=== PATIENT | female | born 1970 | race African-American/Black ===

== ENCOUNTER 2016-12-19 10:31 | Emergency (ER) | payer SELFPAY ==
[~2016-12-19] VITALS: Ht 167.6 cm; Wt 87.0 kg
[~2016-12-19 10:31] MED LIST: METF500T4 PO
[2016-12-19] MEDS ORDERED: SODIUM CHLORIDE 0.9% 1,000 ML IV ONE (11:39)
[2016-12-19 12:23] LABS: EOSINOPHILS % 2.9 % (0.0-5.0); HEMATOCRIT. 42.6 % (36.0-48.0); HEMOGLOBIN. 13.9 g/dL (12.0-16.0); LYMPHOCYTES % 24.4 % (20.0-50.0); MEAN CORPUSCULAR HEMOGLOBIN 28.2 pg (28.0-32.0); MEAN CORPUSCULAR VOLUME 86.2 fL (81.0-99.0); MEAN PLATELET VOLUME 9.5 fl (7.4-10.4); MONOCYTES % 7.9 % (2.0-8.0); NEUTROPHILS % 63.8 % (40.0-76.0); PLATELET 292 x1000/uL (130-400); RED BLOOD CELL COUNT 4.94 mill/uL (4.2-5.4); RED CELL DISTRIBUTION WIDTH 13.9 % (11.6-14.6)
[2016-12-19 12:30] LABS: PROTHROMBIN TIME 10.1 sec
[2016-12-19 12:45] LABS: HCG SCREEN NEGATIVE
[2016-12-19 13:13] LABS: CARBON DIOXIDE 28 mEq/L (21-32); CHLORIDE 105 mEq/L (98-107); ETHANOL BLOOD < 10 mg/dL
[2016-12-19 13:17] LABS: TROPONIN I < 0.02 ng/mL (0.00-0.04)
[2016-12-19] MEDS ORDERED: INSULIN REGULAR (HUMULIN R) 300UNITS/3ML SUBCUT ONE (13:30)
[2016-12-19 13:48] LABS: *AMPHETAMINES SCREEN URINE NEGATIVE (NEGATIVE); *BARBITURATES SCREEN URINE NEGATIVE (NEGATIVE); *BENZODIAZEPINES SCREEN URINE NEGATIVE (NEGATIVE); CANNABINOID URINE SCREEN NEGATIVE (NEGATIVE); METHADONE URINE SCREEN NEGATIVE (NEGATIVE); OPIATES URINE SCREEN NEGATIVE (NEGATIVE); PHENCYCLIDINE URINE SCREEN NEGATIVE (NEGATIVE)
[2016-12-19 13:49] LABS: *COCAINE SCREEN URINE PRESUMTIVE POSITIVE (NEGATIVE)
[2016-12-19 14:39] VITALS: BP 123/68
== END 2016-12-19 14:50 | disposition home or self-care (01) ==
LOC: ER 12:08
DX: R07.9 Chest pain, unspecified (principal); F14.10 Cocaine abuse, uncomplicated; E11.65 Type 2 diabetes mellitus with hyperglycemia; I10 Essential (primary) hypertension; F17.200 Nicotine dependence, unspecified, uncomplicated; M79.602 Pain in left arm; M79.601 Pain in right arm
CPT/HCPCS: 36415; 71010; 80053; 80305; 82010; 82962; 83605; 83690; 84484; 84703; 85025; 85610; 93005; 96360; 96372; 99285; G0482; J1815; J7030; Z7610

== ENCOUNTER 2018-01-16 18:53 | Emergency (ER) | payer MEDICAID ==
[~2018-01-16] VITALS: Ht 170.2 cm; Wt 86.0 kg
[~2018-01-16 18:53] MED LIST changes: -METF500T4 PO; +METF500T6 PO
[2018-01-16] MEDS ORDERED: DIPHENHYDRAMINE 50MG CAPSULE PO ONE (21:00)
[2018-01-16] MEDS ORDERED: PREDNISONE 20MG TABLET PO ONE (21:00)
[2018-01-16 21:30] VITALS: BP 134/88
== END 2018-01-16 22:45 | disposition home or self-care (01) ==
LOC: ER 19:20
DX: L50.9 Urticaria, unspecified (principal); R56.9 Unspecified convulsions; E11.9 Type 2 diabetes mellitus without complications; I10 Essential (primary) hypertension; F20.9 Schizophrenia, unspecified
CPT/HCPCS: 99283; J7512; 93005; Q0163

== ENCOUNTER 2018-05-18 04:07 | Inpatient (IN) | payer SELFPAY ==
[~2018-05-18] VITALS: Ht 167.6 cm; Wt 79.4 kg
[~2018-05-18 04:07] MED LIST changes: +METF-414 PO; -METF500T6 PO
[2018-05-18] MEDS ORDERED: ASPIRIN 81MG TABLET PO ONE (04:45)
[2018-05-18 05:11] LABS: BASOPHILS % 0.7 % (0.0-2.0); EOSINOPHILS % 2.2 % (0.0-5.0); HEMATOCRIT. 48.2 % (36.0-48.0); HEMOGLOBIN. 15.4 g/dL (12.0-16.0); LYMPHOCYTES % 20.1 % (20.0-50.0); MEAN CORPUSCULAR HEMOGLOBIN 27.3 pg (28.0-32.0); MEAN CORPUSCULAR VOLUME 85.4 fL (81.0-99.0); MEAN PLATELET VOLUME 8.7 fl (7.4-10.4); MONOCYTES % 6.6 % (2.0-8.0); NEUTROPHILS % 70.4 % (40.0-76.0); PLATELET 411 x1000/uL (130-400); RED BLOOD CELL COUNT 5.65 mill/uL (4.2-5.4); RED CELL DISTRIBUTION WIDTH 14.7 % (11.6-14.6)
[2018-05-18 05:16] LABS: CHLORIDE 96 mEq/L (98-107)
[2018-05-18] MEDS ORDERED: SODIUM CHLORIDE 0.9% 1,000 ML IV ONE (06:15)
[2018-05-18] MEDS ORDERED: INSULIN REGULAR (HUMULIN R) 300UNITS/3ML SUBCUT ONE (06:15)
[2018-05-18] MEDS ORDERED: ONDANSETRON HCL 4MG/2ML INJ IV ONE (07:00)
[2018-05-18] MEDS ORDERED: MORPHINE SULFATE 4 MG/ML CPJ (NOT FOR IM USE) IV ONE (07:00)
[2018-05-18] MEDS ORDERED: LEVOFLOXACIN 750MG PREMIX 150 ML IV ONE (07:03)
[2018-05-18] MEDS ORDERED: MORPHINE SULFATE 10 MG/ML CPJ IV ONE (07:15)
[2018-05-18 07:23] LABS: *BARBITURATES SCREEN URINE NEGATIVE (NEGATIVE)
[2018-05-18 07:24] LABS: *COCAINE SCREEN URINE PRESUMTIVE POSITIVE (NEGATIVE)
[2018-05-18 07:25] LABS: *AMPHETAMINES SCREEN URINE NEGATIVE (NEGATIVE); *BENZODIAZEPINES SCREEN URINE NEGATIVE (NEGATIVE); METHADONE URINE SCREEN NEGATIVE (NEGATIVE); OPIATES URINE SCREEN NEGATIVE (NEGATIVE); PHENCYCLIDINE URINE SCREEN NEGATIVE (NEGATIVE)
[2018-05-18 07:26] LABS: CANNABINOID URINE SCREEN NEGATIVE (NEGATIVE)
[2018-05-18] MEDS ORDERED: ONDANSETRON HCL 4MG/2ML INJ IV PRN (08:00)
[2018-05-18] MEDS ORDERED: CLONIDINE 0.1MG TABLET PO PRN (08:00)
[2018-05-18] MEDS ORDERED: ACETAMINOPHEN 325MG TABLET PO PRN (08:00)
[2018-05-18] MEDS ORDERED: MAGNESIUM/ALUMINUM HYDROXIDE/SIMETHICONE 30ML UDC PO PRN (08:00)
[2018-05-18] MEDS ORDERED: INSULIN LISPRO 100 UNITS/ML SUBCUT NR (16:17)
[2018-05-18] MEDS: HYDROCODONE/ACETAMINOPHEN 5/325MG TABLET PO PRN (16:47)
[2018-05-18] MEDS: BLOOD SUGAR DIAGNOSTIC STRIP TEST SCH (21:08)
[2018-05-18] MEDS ORDERED: DEXTROSE 50% WATER 50ML SYRINGE IV PRN (21:10)
[2018-05-18 21:15] VITALS: BP 116/114
[2018-05-18] MEDS: INSULIN LISPRO 100 UNITS/ML SUBCUT SCH (21:42)
[2018-05-18] MEDS ORDERED: AMLODIPINE 10MG TABLET PO SCH (22:00)
[2018-05-19] VITALS: BP 140/88
[2018-05-19 04:00] VITALS: BP 131/89
[2018-05-19] MEDS: HYDROCODONE/ACETAMINOPHEN 5/325MG TABLET PO PRN (06:02)
[2018-05-19] MEDS: INSULIN LISPRO 100 UNITS/ML SUBCUT SCH ×2 (06:06→12:15)
[2018-05-19] MEDS: BLOOD SUGAR DIAGNOSTIC STRIP TEST SCH ×2 (06:07→11:45)
[2018-05-19 08:00] VITALS: BP 126/85
[2018-05-19] MEDS ORDERED: LEVOFLOXACIN 500MG PREMIX 100 ML IV SCH (08:00)
[2018-05-19] MEDS: AMLODIPINE 10MG TABLET PO SCH ×2 (10:11→10:13)
[2018-05-19 10:40] LABS: BASOPHILS % 0.8 % (0.0-2.0); EOSINOPHILS % 1.8 % (0.0-5.0); HEMOGLOBIN. 14.3 g/dL (12.0-16.0); MEAN CORPUSCULAR HEMOGLOBIN 27.6 pg (28.0-32.0); MEAN CORPUSCULAR VOLUME 84.8 fL (81.0-99.0); MEAN PLATELET VOLUME 8.3 fl (7.4-10.4); MONOCYTES % 8.5 % (2.0-8.0); NEUTROPHILS % 66.9 % (40.0-76.0); PLATELET 387 x1000/uL (130-400); RED BLOOD CELL COUNT 5.18 mill/uL (4.2-5.4); RED CELL DISTRIBUTION WIDTH 14.8 % (11.6-14.6)
[2018-05-19 11:41] LABS: CHLORIDE 103 mEq/L (98-107)
[2018-05-19 11:48] LABS: LDL CHOLESTEROL 180 mg/dL (5-100)
[2018-05-19 11:49] LABS: CREATINE KINASE 45 IU/L (26-192); HDL CHOLESTEROL 47 mg/dL (40-59)
[2018-05-19 12:00] VITALS: BP 146/93
[2018-05-19 12:55] VITALS: BP 146/93
== END 2018-05-19 14:43 | disposition home or self-care (01) | DRG 139 ==
LOC: ER 06:09 → 5WST 06:50 → ENRESERV 19:38
PROVIDERS: ADMIT Hospitalist; ATTEND Hospitalist
DX: J18.9 Pneumonia, unspecified organism (principal); E11.65 Type 2 diabetes mellitus with hyperglycemia; I10 Essential (primary) hypertension; F14.10 Cocaine abuse, uncomplicated; E78.5 Hyperlipidemia, unspecified; E78.00 Pure hypercholesterolemia, unspecified; F17.200 Nicotine dependence, unspecified, uncomplicated; Z98.891 History of uterine scar from previous surgery
CPT/HCPCS: 36415; 71045; 80061; 80305; 82550; 82962; 83036; 83880; 84484; 85379; 93005; 93306; 93970; 96361; 96372; 96374; 96375; 99285; G0482; J1815; J1956; J2270; J2405

== ENCOUNTER 2020-01-19 02:44 | Inpatient (IN) | payer MEDICAID, SELFPAY ==
[~2020-01-19] VITALS: Ht 167.6 cm; Wt 74.8 kg
[2020-01-19 04:40] LABS: BASOPHILS % 0.5 % (0.0-2.0); EOSINOPHILS % 1.4 % (0.0-5.0); HEMATOCRIT. 47.4 % (36.0-48.0); HEMOGLOBIN. 15.6 g/dL (12.0-16.0); LYMPHOCYTES % 10.9 % (20.0-50.0); MEAN CORPUSCULAR HEMOGLOBIN 28.7 pg (28.0-32.0); MEAN CORPUSCULAR VOLUME 87.4 fL (81.0-99.0); MONOCYTES % 7.9 % (2.0-8.0); NEUTROPHILS % 79.3 % (40.0-76.0); PLATELET 299 x1000/uL (130-400); RED BLOOD CELL COUNT 5.43 mill/uL (4.2-5.4)
[2020-01-19 04:46] LABS: CHLORIDE 101 mEq/L (98-107)
[2020-01-19 04:53] LABS: D-DIMER 1.3 mg/L FEU (<0.50); INR 0.9; PROTHROMBIN TIME 9.7 sec (9.6-11.0)
[2020-01-19 04:55] LABS: CREATINE KINASE 100 IU/L (26-192)
[2020-01-19] MEDS ORDERED: KETOROLAC 15MG/ML VIAL IV ONE (06:45)
[2020-01-19] MEDS ORDERED: CEFTRIAXONE 1 G PREMIX 50 ML IV ONE (07:15)
[2020-01-19] MEDS ORDERED: METHYLPREDNISOLONE SOD SUCC 125 MG/2 ML VIAL IV ONE (07:15)
[2020-01-19] MEDS ORDERED: DOXYCYCLINE HYCLATE 100MG CAPSULE PO ONE (07:15)
[2020-01-19] MEDS ORDERED: MORPHINE SULFATE 4 MG/ML CPJ (NOT FOR IM USE) IV ONE (07:15)
[2020-01-19] MEDS ORDERED: ALBUTEROL 6.7GM HFA INHALER ORI ONE (07:15)
[2020-01-19 07:37] LABS: CLARITY URINE CLEAR (CLEAR); COLOR URINE YELLOW (YELLOW); KETONES URINE 1+ (NEGATIVE); LEUKOCYTE ESTERASE URINE NEGATIVE (NEGATIVE); NITRITE URINE NEGATIVE (NEGATIVE); OCCULT BLOOD URINE NEGATIVE (NEGATIVE); PROTEIN URINE 2+ (NEGATIVE); SPECIFIC GRAVITY URINE 1.037 (1.005-1.030); UROBILINOGEN URINE 0.2 E.U./dL (0.2-1.0)
[2020-01-19] MEDS ORDERED: DOXYCYCLINE HYCLATE 100MG CAPSULE PO SCH (08:05)
[2020-01-19] MEDS ORDERED: SODIUM CHLORIDE 0.9% 1,000 ML IV ONE (09:30)
[2020-01-19] MEDS ORDERED: DEXTROSE 50% WATER 50ML SYRINGE IV PRN (10:30)
[2020-01-19] MEDS ORDERED: LEVOFLOXACIN 750MG PREMIX 150 ML IV NR (10:30)
[2020-01-19] MEDS ORDERED: HYDROCODONE/ACETAMINOPHEN 10/325MG TABLET PO PRN (10:30)
[2020-01-19] MEDS ORDERED: LORAZEPAM 0.5MG TABLET PO PRN (10:30)
[2020-01-19] MEDS ORDERED: GUAIFENESIN 200MG/10ML SUGAR FREE UDC PO PRN (10:30)
[2020-01-19] MEDS ORDERED: DIPHENHYDRAMINE 50MG/ML VIAL IV PRN (10:30)
[2020-01-19] MEDS ORDERED: ACETAMINOPHEN 325MG TABLET PO PRN ×2 (10:30)
[2020-01-19] MEDS ORDERED: ONDANSETRON HCL 4MG/2ML INJ IV PRN (10:30)
[2020-01-19] MEDS ORDERED: MAGNESIUM/ALUMINUM HYDROXIDE/SIMETHICONE 30ML UDC PO PRN (10:30)
[2020-01-19] MEDS ORDERED: CLONIDINE 0.1MG TABLET PO PRN (10:30)
[2020-01-19] MEDS ORDERED: IPRATROPIUM/ALBUTEROL 0.5-3(2.5)MG/3ML NEB HHN PRN (10:30)
[2020-01-19] MEDS ORDERED: ENOXAPARIN 40MG/0.4ML SYR SUBCUT SCH (11:00)
[2020-01-19] MEDS ORDERED: IPRATROPIUM/ALBUTEROL 0.5-3(2.5)MG/3ML NEB HHN SCH (12:00)
[2020-01-19] MEDS: BLOOD SUGAR DIAGNOSTIC STRIP TEST SCH ×3 (12:54→21:00)
[2020-01-19] MEDS: INSULIN LISPRO 100 UNITS/ML SUBCUT SCH ×3 (12:58→21:00)
[2020-01-19] MEDS ORDERED: INSULIN REGULAR (HUMULIN R) 300UNITS/3ML SUBCUT ONE (13:15)
[2020-01-19] MEDS ORDERED: INSULIN LISPRO 100 UNITS/ML SUBCUT SCH (13:30)
[2020-01-19] MEDS: INSULIN GLARGINE UD 100 UNITS/ML SYR SUBCUT SCH ×2 (13:53→23:00)
[2020-01-19 15:00] VITALS: BP 133/83
[2020-01-19] MEDS: METHYLPREDNISOLONE SOD SUCC 125 MG/2 ML VIAL IV SCH ×2 (15:53→21:03)
[2020-01-19] MEDS: SODIUM CHLORIDE 0.9% INJ 3ML FLUSH IVF SCH ×2 (15:54→21:03)
[2020-01-19 16:00] VITALS: BP 133/83
[2020-01-19] MEDS ORDERED: INSULIN LISPRO 100 UNITS/ML SUBCUT NR (16:30)
[2020-01-19 20:00] VITALS: BP 142/79
[2020-01-19] MEDS ORDERED: ZOLPIDEM TARTRATE 5MG TABLET PO PRN (21:00)
[2020-01-20 00:05] VITALS: BP 135/81
[2020-01-20] MEDS ORDERED: VANCOMYCIN 1500MG in DEXTROSE 5% WATER 250ML IV SCH (03:00)
[2020-01-20 04:00] VITALS: BP 140/69
[2020-01-20] MEDS: BLOOD SUGAR DIAGNOSTIC STRIP TEST SCH (06:04)
[2020-01-20] MEDS: INSULIN LISPRO 100 UNITS/ML SUBCUT SCH (06:04)
[2020-01-20] MEDS: SODIUM CHLORIDE 0.9% INJ 3ML FLUSH IVF SCH (06:04)
[2020-01-20 08:00] VITALS: BP 118/92
[2020-01-20] MEDS ORDERED: LEVOFLOXACIN 500MG PREMIX 100 ML IV SCH ×2 (09:00)
[2020-01-20 09:59] LABS: *BARBITURATES SCREEN URINE NEGATIVE (NEGATIVE); *BENZODIAZEPINES SCREEN URINE NEGATIVE (NEGATIVE)
[2020-01-20 10:00] LABS: *AMPHETAMINES SCREEN URINE NEGATIVE (NEGATIVE); *COCAINE SCREEN URINE PRESUMTIVE POSITIVE (NEGATIVE); CANNABINOID URINE SCREEN NEGATIVE (NEGATIVE); METHADONE URINE SCREEN NEGATIVE (NEGATIVE); OPIATES URINE SCREEN NEGATIVE (NEGATIVE); PHENCYCLIDINE URINE SCREEN NEGATIVE (NEGATIVE)
[2020-01-20] MEDS ORDERED: VANCOMYCIN 1 G PREMIX 200 ML IV SCH (10:00)
[2020-01-20] MEDS ORDERED: MONTELUKAST SODIUM 10MG TABLET PO SCH (17:00)
[2020-01-20] MEDS ORDERED: BUDESONIDE 0.5MG/2ML NEB HHN SCH (17:00)
== END 2020-01-20 13:30 | disposition left against medical advice (07) | DRG 816 ==
LOC: ER 02:44 → 7WST 09:25 → ENRESERV 13:20
PROVIDERS: ADMIT Internal Medicine; ATTEND Internal Medicine
DX: T40.5X1A Poisoning by cocaine, accidental (unintentional), initial encounter (principal); E11.65 Type 2 diabetes mellitus with hyperglycemia; F17.200 Nicotine dependence, unspecified, uncomplicated; E78.00 Pure hypercholesterolemia, unspecified; I10 Essential (primary) hypertension; Z20.828 Contact with and (suspected) exposure to other viral communicable diseases; D72.810 Lymphocytopenia; E78.5 Hyperlipidemia, unspecified; J68.0 Bronchitis and pneumonitis due to chemicals, gases, fumes and vapors; J96.00 Acute respiratory failure, unspecified whether with hypoxia or hypercapnia; F41.9 Anxiety disorder, unspecified; Z82.49 Family history of ischemic heart disease and other diseases of the circulatory system; Z98.891 History of uterine scar from previous surgery; Z83.3 Family history of diabetes mellitus; Y92.89 Other specified places as the place of occurrence of the external cause; Z79.84 Long term (current) use of oral hypoglycemic drugs
CPT/HCPCS: 36415; 71045; 80053; 80305; 81003; 82550; 82728; 82962; 83036; 83605; 83615; 83880; 84145; 84484; 85025; 85379; 85384; 86140; 87635; 93005; 94640; 96365; 99291; J0696; J1650; J1815; J1885; J1956; J2270; J2930; J3370; J7030; J7060

== ENCOUNTER 2020-03-02 02:34 | Inpatient (IN) | payer MEDICAID, SELFPAY ==
[~2020-03-02] VITALS: Ht 170.2 cm; Wt 80.8 kg
[2020-03-02] MEDS ORDERED: ONDANSETRON HCL 4MG/2ML INJ IV ONE (03:45)
[2020-03-02 04:10] LABS: MEAN CORPUSCULAR HEMOGLOBIN 28.2 pg (28.0-32.0); MEAN CORPUSCULAR VOLUME 86.4 fL (81.0-99.0); MEAN PLATELET VOLUME 9.1 fl (7.4-10.4); PLATELET 397 x1000/uL (130-400); RED BLOOD CELL COUNT 5.32 mill/uL (4.2-5.4); RED CELL DISTRIBUTION WIDTH 14.1 % (11.6-14.6)
[2020-03-02 04:18] LABS: CHLORIDE 104 mEq/L (98-107)
[2020-03-02 04:30] LABS: PLATELET ESTIMATE NORMAL
[2020-03-02] MEDS ORDERED: ALBUTEROL (0.083%) 2.5MG/3ML NEB HHN STA (04:46)
[2020-03-02] MEDS ORDERED: IPRATROPIUM BROMIDE (0.02%) 0.5MG/2.5ML NEB HHN STA (04:46)
[2020-03-02] MEDS ORDERED: LEVOFLOXACIN 500MG PREMIX 100 ML IV ONE (05:00)
[2020-03-02] MEDS ORDERED: INSULIN LISPRO 100 UNITS/ML SUBCUT SCH (05:15)
[2020-03-02] MEDS ORDERED: SODIUM CHLORIDE 0.9% 1,000 ML IV ONE ×2 (05:30)
[2020-03-02] MEDS ORDERED: SODIUM CHLORIDE 0.9% 500 ML IV ONE (05:30)
[2020-03-02 09:15] VITALS: BP_SYST 153; BP_SYST 161; BP_DIAS 93
[2020-03-02] MEDS ORDERED: AMLODIPINE 10MG TABLET PO SCH (11:15)
[2020-03-02] MEDS ORDERED: CEFTRIAXONE 1 G PREMIX 50 ML IV SCH (11:15)
[2020-03-02] MEDS ORDERED: DEXTROSE 50% WATER 50ML SYRINGE IV PRN (11:15)
[2020-03-02] MEDS ORDERED: ONDANSETRON HCL 4MG/2ML INJ IV PRN (11:15)
[2020-03-02] MEDS ORDERED: DIATR MEGLU/DIATRIZOATE SOLN 30ML PO NR (11:45)
[2020-03-02 12:00] VITALS: BP 150/93
[2020-03-02] MEDS ORDERED: PNEUMOCOCCAL 23-VAL P-SAC VAC 0.5 ML IM ONE (12:00)
[2020-03-02] MEDS: INSULIN LISPRO 100 UNITS/ML SUBCUT SCH ×3 (12:10→21:14)
[2020-03-02] MEDS: KETOROLAC 30MG/ML VIAL IV PRN ×2 (12:11→18:03)
[2020-03-02] MEDS: BLOOD SUGAR DIAGNOSTIC STRIP TEST SCH ×3 (12:29→21:10)
[2020-03-02] MEDS: INSULIN GLARGINE UD 100 UNITS/ML SYR SUBCUT SCH (13:00)
[2020-03-02] MEDS: GUAIFENESIN 200MG/10ML SUGAR FREE UDC PO PRN ×2 (13:08→23:12)
[2020-03-02] MEDS: FUROSEMIDE 40MG/4ML VIAL IVP SCH (13:08)
[2020-03-02] MEDS: CARVEDILOL 3.125 MG TABLET PO SCH ×2 (13:09→20:56)
[2020-03-02] MEDS ORDERED: AMLODIPINE 5MG TABLET PO ONE (13:15)
[2020-03-02] MEDS ORDERED: DOCUSATE SODIUM 100MG CAPSULE PO PRN (14:00)
[2020-03-02] MEDS ORDERED: SENNOSIDES/DOCUSATE SOD 8.6/50MG TABLET PO PRN (14:00)
[2020-03-02] MEDS ORDERED: MAGNESIUM HYDROXIDE 400MG/5ML 30ML UDC PO PRN (14:00)
[2020-03-02] MEDS ORDERED: MAGNESIUM/ALUMINUM HYDROXIDE/SIMETHICONE 30ML UDC PO PRN (14:00)
[2020-03-02] MEDS: AZITHROMYCIN 500 MG in DEXT 5% WATER 250 ML IV SCH (14:06)
[2020-03-02] MEDS: CEFTRIAXONE 1,000 MG in DEXTROSE 5% WATER 50 ML IV SCH (14:06)
[2020-03-02] MEDS: FAMOTIDINE 20MG/2ML VIAL IV SCH ×2 (14:10→20:55)
[2020-03-02] MEDS: NITROGLYCERIN OINT 1GM/INCH UDPKT TD SCH ×2 (14:10→21:15)
[2020-03-02 14:20] LABS: BG BASE EXCESS 2.6 mmol/L (-2.0-2.0); BG CARBOXYHEMOGLOBIN 0.9 % (0.5-1.5); BG DEOXYHEMOGLOBIN 14.3 % (0.0-5.0); BG FRACTION INSPIRED OXYGEN 21; BG HCO3 ACT 27.3 mmol/L (22.0-26.0); BG METHEMOGLOBIN 0.1 % (0.0-1.5); BG OXYGEN SATURATION 85.6 % (92.0-98.5); BG OXYHEMOGLOBIN 84.7 % (94.0-97.0); BG PCO2 42.4 mmHg (35.0-45.0); BG PH 7.427 (7.350-7.450); BG PO2 46.7 mmHg (75.0-100.0); BG SAMPLE SITE RIGHT RADIAL; BG TOTAL HEMOGLOBIN 14.4 g/dL (12.0-18.0); BG VENT MODE ROOM AIR
[2020-03-02 16:00] VITALS: BP 111/70
[2020-03-02 16:03] LABS: *BARBITURATES SCREEN URINE NEGATIVE (NEGATIVE); *BENZODIAZEPINES SCREEN URINE NEGATIVE (NEGATIVE); *COCAINE SCREEN URINE PRESUMTIVE POSITIVE (NEGATIVE); CANNABINOID URINE SCREEN NEGATIVE (NEGATIVE)
[2020-03-02 16:04] LABS: *AMPHETAMINES SCREEN URINE NEGATIVE (NEGATIVE); METHADONE URINE SCREEN NEGATIVE (NEGATIVE); OPIATES URINE SCREEN NEGATIVE (NEGATIVE); PHENCYCLIDINE URINE SCREEN NEGATIVE (NEGATIVE)
[2020-03-02 20:00] VITALS: BP 123/72
[2020-03-02] MEDS: HEPARIN 5000 UNITS/ML VIAL SUBCUT SCH (20:56)
[2020-03-02] MEDS: ACETAMINOPHEN 325MG TABLET PO PRN (20:56)
[2020-03-02] MEDS ORDERED: TRAZODONE HCL 50MG TABLET PO PRN (21:00)
[2020-03-02 21:26] LABS: HEMATOCRIT. 39.5 % (36.0-48.0); MEAN CORPUSCULAR HEMOGLOBIN 28.5 pg (28.0-32.0); MEAN CORPUSCULAR VOLUME 86.6 fL (81.0-99.0); PLATELET 329 x1000/uL (130-400); RED BLOOD CELL COUNT 4.57 mill/uL (4.2-5.4); RED CELL DISTRIBUTION WIDTH 13.8 % (11.6-14.6)
[2020-03-02 21:29] LABS: CHLORIDE 102 mEq/L (98-107)
[2020-03-02 21:57] LABS: PLATELET ESTIMATE NORMAL
[2020-03-02 22:00] VITALS: BP 100/62
[2020-03-03 04:00] VITALS: BP 113/71
[2020-03-03] MEDS: NITROGLYCERIN OINT 1GM/INCH UDPKT TD SCH ×2 (06:00→20:25)
[2020-03-03 06:26] LABS: HEMOGLOBIN. 12.9 g/dL (12.0-16.0); MEAN CORPUSCULAR HEMOGLOBIN 28.2 pg (28.0-32.0); MEAN CORPUSCULAR VOLUME 87.3 fL (81.0-99.0); PLATELET 350 x1000/uL (130-400); RED BLOOD CELL COUNT 4.58 mill/uL (4.2-5.4); RED CELL DISTRIBUTION WIDTH 14.1 % (11.6-14.6)
[2020-03-03] MEDS: BLOOD SUGAR DIAGNOSTIC STRIP TEST SCH ×4 (06:46→20:36)
[2020-03-03] MEDS: INSULIN LISPRO 100 UNITS/ML SUBCUT SCH ×4 (06:58→20:50)
[2020-03-03 07:15] LABS: CHLORIDE 100 mEq/L (98-107)
[2020-03-03 08:00] VITALS: BP 114/67
[2020-03-03] MEDS: FAMOTIDINE 20MG/2ML VIAL IV SCH ×2 (08:13→20:25)
[2020-03-03] MEDS: HEPARIN 5000 UNITS/ML VIAL SUBCUT SCH ×2 (08:13→20:25)
[2020-03-03] MEDS: AMLODIPINE 5MG TABLET PO SCH ×2 (08:13→20:25)
[2020-03-03] MEDS: FUROSEMIDE 40MG/4ML VIAL IVP SCH (08:13)
[2020-03-03] MEDS: CARVEDILOL 3.125 MG TABLET PO SCH (08:14)
[2020-03-03] MEDS ORDERED: FOLIC ACID/VITAMIN B COMP W-C TABLET PO SCH (09:00)
[2020-03-03] MEDS: INSULIN GLARGINE UD 100 UNITS/ML SYR SUBCUT SCH (09:23)
[2020-03-03] MEDS: GUAIFENESIN 200MG/10ML SUGAR FREE UDC PO PRN (10:57)
[2020-03-03] MEDS: KETOROLAC 30MG/ML VIAL IV PRN ×3 (11:00→23:49)
[2020-03-03 12:00] VITALS: BP 121/77
[2020-03-03] MEDS ORDERED: DIATR MEGLU/DIATRIZOATE SOLN 30ML PO SCH ×2 (12:00→13:42)
[2020-03-03] MEDS: CEFTRIAXONE 1,000 MG in DEXTROSE 5% WATER 50 ML IV SCH (12:10)
[2020-03-03] MEDS: AZITHROMYCIN 500 MG in DEXT 5% WATER 250 ML IV SCH (12:27)
[2020-03-03 13:56] LABS: PLATELET ESTIMATE NORMAL
[2020-03-03 16:00] VITALS: BP_SYST 139; BP_DIAS 0; BP_DIAS 90
[2020-03-03 20:00] VITALS: BP 113/65
[2020-03-03] MEDS: ACETAMINOPHEN 325MG TABLET PO PRN (21:24)
[2020-03-03] MEDS: IPRATROPIUM BROMIDE (0.02%) 0.5MG/2.5ML NEB HHN PRN (21:52)
[2020-03-03 23:15] LABS: BG BASE EXCESS 4.8 mmol/L (-2.0-2.0); BG CARBOXYHEMOGLOBIN 0.8 % (0.5-1.5); BG DEOXYHEMOGLOBIN 9.1 % (0.0-5.0); BG FRACTION INSPIRED OXYGEN 36; BG HCO3 ACT 29.1 mmol/L (22.0-26.0); BG METHEMOGLOBIN 0.1 % (0.0-1.5); BG OXYGEN SATURATION 90.8 % (92.0-98.5); BG PCO2 41.6 mmHg (35.0-45.0); BG PH 7.462 (7.350-7.450); BG PO2 55.3 mmHg (75.0-100.0); BG SAMPLE SITE LEFT RADIAL; BG TOTAL HEMOGLOBIN 13.6 g/dL (12.0-18.0); BG VENT MODE NASAL CANNULA
[2020-03-04] VITALS: BP 106/61
[2020-03-04] MEDS: IPRATROPIUM BROMIDE (0.02%) 0.5MG/2.5ML NEB HHN PRN (00:15)
[2020-03-04] MEDS: GUAIFENESIN 200MG/10ML SUGAR FREE UDC PO PRN ×3 (01:21→16:19)
[2020-03-04] MEDS: IPRATROPIUM BROMIDE (0.02%) 0.5MG/2.5ML NEB HHN SCH ×3 (04:31→21:27)
[2020-03-04] MEDS: BLOOD SUGAR DIAGNOSTIC STRIP TEST SCH ×4 (05:32→20:52)
[2020-03-04] MEDS: KETOROLAC 30MG/ML VIAL IV PRN ×3 (05:41→19:15)
[2020-03-04] MEDS: INSULIN LISPRO 100 UNITS/ML SUBCUT SCH ×4 (05:44→20:52)
[2020-03-04 06:31] LABS: HEMATOCRIT. 37.4 % (36.0-48.0); MEAN CORPUSCULAR HEMOGLOBIN 28.1 pg (28.0-32.0); MEAN CORPUSCULAR VOLUME 87.4 fL (81.0-99.0); MEAN PLATELET VOLUME 9.3 fl (7.4-10.4); PLATELET 337 x1000/uL (130-400); RED BLOOD CELL COUNT 4.27 mill/uL (4.2-5.4); RED CELL DISTRIBUTION WIDTH 13.8 % (11.6-14.6)
[2020-03-04 06:34] LABS: CHLORIDE 99 mEq/L (98-107)
[2020-03-04 08:00] VITALS: BP 105/56
[2020-03-04] MEDS: AMLODIPINE 5MG TABLET PO SCH ×2 (08:50→20:51)
[2020-03-04] MEDS: FAMOTIDINE 20MG/2ML VIAL IV SCH ×2 (08:50→20:50)
[2020-03-04] MEDS: FUROSEMIDE 40MG/4ML VIAL IVP SCH (08:50)
[2020-03-04] MEDS: NITROGLYCERIN OINT 1GM/INCH UDPKT TD SCH ×2 (08:50→20:51)
[2020-03-04] MEDS: ACETAMINOPHEN 325MG TABLET PO PRN (08:51)
[2020-03-04] MEDS: HEPARIN 5000 UNITS/ML VIAL SUBCUT SCH ×2 (08:51→20:50)
[2020-03-04 09:28] LABS: PLATELET ESTIMATE NORMAL
[2020-03-04] MEDS ORDERED: INSULIN GLARGINE UD 100 UNITS/ML SYR SUBCUT SCH ×2 (10:00→14:00)
[2020-03-04] MEDS ORDERED: MORPHINE SULFATE 2 MG/ML CPJ (NOT FOR IM USE) IV NR (10:00)
[2020-03-04] MEDS: CEFTRIAXONE 1,000 MG in DEXTROSE 5% WATER 50 ML IV SCH (11:50)
[2020-03-04 12:00] VITALS: BP 135/75
[2020-03-04] MEDS ORDERED: METHYLPREDNISOLONE SOD SUCC 125 MG/2 ML VIAL IV SCH (12:00)
[2020-03-04] MEDS: AZITHROMYCIN 500 MG in DEXT 5% WATER 250 ML IV SCH (13:41)
[2020-03-04 16:00] VITALS: BP 134/83
[2020-03-04] MEDS: MORPHINE SULFATE 2 MG/ML CPJ (NOT FOR IM USE) IV PRN (16:19)
[2020-03-04] MEDS: METHYLPREDNISOLONE SOD SUCC 40 MG/ML VIAL IV SCH (17:45)
[2020-03-04] MEDS: PIPERACILLIN/TAZOBACTAM 3.375 G in DEXT 5% WATER 100 ML IV SCH ×2 (17:45→23:59)
[2020-03-04 20:36] LABS: HEPATITIS B SURFACE ANTIGEN NEGATIVE
[2020-03-04 21:06] LABS: HEPATITIS A AB IGM NEGATIVE (NEGATIVE)
[2020-03-04] MEDS ORDERED: PIPERACILLIN/TAZOBACTAM 3.375 G/VIAL IV SCH (22:00)
[2020-03-05] VITALS: BP 104/66
[2020-03-05] MEDS: MORPHINE SULFATE 2 MG/ML CPJ (NOT FOR IM USE) IV PRN ×2 (00:25→05:03)
[2020-03-05] MEDS: IPRATROPIUM BROMIDE (0.02%) 0.5MG/2.5ML NEB HHN SCH ×6 (00:36→21:07)
[2020-03-05] MEDS: METHYLPREDNISOLONE SOD SUCC 40 MG/ML VIAL IV SCH ×3 (00:53→17:13)
[2020-03-05 04:00] VITALS: BP 119/73
[2020-03-05] MEDS: GUAIFENESIN 200MG/10ML SUGAR FREE UDC PO PRN (04:29)
[2020-03-05] MEDS: PIPERACILLIN/TAZOBACTAM 3.375 G in DEXT 5% WATER 100 ML IV SCH ×3 (05:03→17:13)
[2020-03-05 05:53] LABS: BG BASE EXCESS 1.6 mmol/L (-2.0-2.0); BG CARBOXYHEMOGLOBIN 0.5 % (0.5-1.5); BG FRACTION INSPIRED OXYGEN 100; BG HCO3 ACT 26.5 mmol/L (22.0-26.0); BG METHEMOGLOBIN 0.2 % (0.0-1.5); BG OXYHEMOGLOBIN 97.3 % (94.0-97.0); BG PCO2 42.9 mmHg (35.0-45.0); BG PH 7.409 (7.350-7.450); BG SAMPLE SITE RIGHT RADIAL; BG TOTAL HEMOGLOBIN 13.6 g/dL (12.0-18.0); BG VENT MODE MASK - NRB
[2020-03-05] MEDS: BLOOD SUGAR DIAGNOSTIC STRIP TEST SCH ×4 (06:14→21:26)
[2020-03-05] MEDS: INSULIN LISPRO 100 UNITS/ML SUBCUT SCH ×4 (06:14→21:26)
[2020-03-05 07:00] LABS: CHLORIDE 99 mEq/L (98-107)
[2020-03-05 07:05] LABS: HEMATOCRIT. 39.1 % (36.0-48.0); HEMOGLOBIN. 12.6 g/dL (12.0-16.0); MEAN CORPUSCULAR HEMOGLOBIN 28.1 pg (28.0-32.0); MEAN CORPUSCULAR VOLUME 87.1 fL (81.0-99.0); PLATELET 380 x1000/uL (130-400); RED BLOOD CELL COUNT 4.49 mill/uL (4.2-5.4); RED CELL DISTRIBUTION WIDTH 13.7 % (11.6-14.6)
[2020-03-05 08:00] VITALS: BP 134/81
[2020-03-05] MEDS ORDERED: INSULIN GLARGINE UD 100 UNITS/ML SYR SUBCUT SCH ×2 (10:00→22:00)
[2020-03-05] MEDS: FUROSEMIDE 40MG/4ML VIAL IVP SCH (10:06)
[2020-03-05] MEDS: AMLODIPINE 5MG TABLET PO SCH ×2 (10:06→21:23)
[2020-03-05] MEDS: FAMOTIDINE 20MG/2ML VIAL IV SCH ×2 (10:06→21:24)
[2020-03-05] MEDS: HEPARIN 5000 UNITS/ML VIAL SUBCUT SCH ×2 (10:06→21:24)
[2020-03-05] MEDS: NITROGLYCERIN OINT 1GM/INCH UDPKT TD SCH ×2 (10:09→21:00)
[2020-03-05 10:14] LABS: HEMATOCRIT. 38.9 % (36.0-48.0); HEMOGLOBIN. 12.6 g/dL (12.0-16.0); MEAN CORPUSCULAR HEMOGLOBIN 28.2 pg (28.0-32.0); PLATELET 380 x1000/uL (130-400); RED BLOOD CELL COUNT 4.47 mill/uL (4.2-5.4); RED CELL DISTRIBUTION WIDTH 13.9 % (11.6-14.6)
[2020-03-05 10:21] LABS: CHLORIDE 100 mEq/L (98-107)
[2020-03-05 11:43] LABS: PLATELET ESTIMATE NORMAL
[2020-03-05 11:59] LABS: PLATELET ESTIMATE NORMAL
[2020-03-05 12:00] VITALS: BP 127/88
[2020-03-05 16:00] VITALS: BP 121/79
[2020-03-05] MEDS ORDERED: INSULIN LISPRO 100 UNITS/ML SUBCUT SCH (17:10)
[2020-03-05 20:00] VITALS: BP 145/88
[2020-03-06] VITALS: BP 138/60
[2020-03-06] MEDS: PIPERACILLIN/TAZOBACTAM 3.375 G in DEXT 5% WATER 100 ML IV SCH ×2 (00:03→05:53)
[2020-03-06] MEDS: IPRATROPIUM BROMIDE (0.02%) 0.5MG/2.5ML NEB HHN SCH ×3 (00:41→09:36)
[2020-03-06] MEDS: METHYLPREDNISOLONE SOD SUCC 40 MG/ML VIAL IV SCH (02:49)
[2020-03-06 04:00] VITALS: BP 140/66
[2020-03-06 05:50] LABS: CHLORIDE 100 mEq/L (98-107)
[2020-03-06 06:16] LABS: HEMATOCRIT. 38.4 % (36.0-48.0); HEMOGLOBIN. 12.6 g/dL (12.0-16.0); MEAN CORPUSCULAR HEMOGLOBIN 28.2 pg (28.0-32.0); MEAN CORPUSCULAR VOLUME 86.1 fL (81.0-99.0); MEAN PLATELET VOLUME 9.3 fl (7.4-10.4); PLATELET 408 x1000/uL (130-400); RED BLOOD CELL COUNT 4.46 mill/uL (4.2-5.4); RED CELL DISTRIBUTION WIDTH 13.7 % (11.6-14.6)
[2020-03-06] MEDS ORDERED: INSULIN LISPRO 100 UNITS/ML SUBCUT SCH (07:10)
[2020-03-06] MEDS ORDERED: GLIPIZIDE 5MG TABLET PO SCH (07:10)
[2020-03-06] MEDS: BLOOD SUGAR DIAGNOSTIC STRIP TEST SCH (07:10)
[2020-03-06 08:00] VITALS: BP 143/99
[2020-03-06] MEDS: AMLODIPINE 5MG TABLET PO SCH (08:16)
[2020-03-06] MEDS: FUROSEMIDE 40MG/4ML VIAL IVP SCH (08:17)
[2020-03-06] MEDS: HEPARIN 5000 UNITS/ML VIAL SUBCUT SCH (08:17)
[2020-03-06] MEDS: FAMOTIDINE 20MG/2ML VIAL IV SCH (08:17)
[2020-03-06] MEDS: NITROGLYCERIN OINT 1GM/INCH UDPKT TD SCH (09:00)
[2020-03-06] MEDS: INSULIN LISPRO 100 UNITS/ML SUBCUT SCH (09:02)
[2020-03-06 10:57] LABS: PLATELET ESTIMATE INCREASED
[2020-03-08 04:09] LABS: HIV SCREEN 4G Non Reactive (Non Reactive)
== END 2020-03-06 10:20 | disposition left against medical advice (07) | DRG 720 ==
LOC: ER 02:34 → ENRESERV 07:47 → 7WST 09:05 → 8WST 03-03 18:32
PROVIDERS: ADMIT Internal Medicine; ATTEND Internal Medicine
DX: A41.9 Sepsis, unspecified organism (principal); I11.0 Hypertensive heart disease with heart failure; Z20.828 Contact with and (suspected) exposure to other viral communicable diseases; E11.65 Type 2 diabetes mellitus with hyperglycemia; J96.01 Acute respiratory failure with hypoxia; F14.10 Cocaine abuse, uncomplicated; K76.9 Liver disease, unspecified; J68.0 Bronchitis and pneumonitis due to chemicals, gases, fumes and vapors; E87.1 Hypo-osmolality and hyponatremia; J91.8 Pleural effusion in other conditions classified elsewhere; F17.210 Nicotine dependence, cigarettes, uncomplicated; G40.909 Epilepsy, unspecified, not intractable, without status epilepticus; Z79.84 Long term (current) use of oral hypoglycemic drugs; Z71.6 Tobacco abuse counseling; I50.31 Acute diastolic (congestive) heart failure
CPT/HCPCS: 36415; 36600; 71045; 71250; 74176; 76705; 80048; 80053; 80305; 82375; 82728; 82805; 82962; 83036; 83605; 83735; 83880; 84145; 84484; 85025; 86705; 86709; 86803; 87340; 87389; 87635; 93005; 93306; 94640; 97162; 99291; J0456; J0696; J1644; J1815; J1885; J1940; J1956; J2270; J2405; J2543; J2920; J2930; J3490; J7060; Q9963

== ENCOUNTER 2020-03-07 00:14 | Inpatient (IN) | payer MEDICAID ==
[~2020-03-07] VITALS: Ht 170.2 cm; Wt 81.8 kg
[2020-03-07 01:56] LABS: CHLORIDE 97 mEq/L (98-107)
[2020-03-07 01:57] LABS: HEMATOCRIT. 40.9 % (36.0-48.0); HEMOGLOBIN. 13.4 g/dL (12.0-16.0); MEAN CORPUSCULAR HEMOGLOBIN 28.3 pg (28.0-32.0); MEAN CORPUSCULAR VOLUME 86.4 fL (81.0-99.0); MEAN PLATELET VOLUME 9.3 fl (7.4-10.4); PLATELET 428 x1000/uL (130-400); RED BLOOD CELL COUNT 4.74 mill/uL (4.2-5.4); RED CELL DISTRIBUTION WIDTH 14.3 % (11.6-14.6)
[2020-03-07] MEDS ORDERED: ONDANSETRON HCL 4MG/2ML INJ IV STA (02:02)
[2020-03-07] MEDS ORDERED: MORPHINE SULFATE 4 MG/ML CPJ (NOT FOR IM USE) IV STA (02:02)
[2020-03-07 02:42] LABS: ATYPICAL LYMPHOCYTES 1; PLATELET ESTIMATE INCREASED
[2020-03-07] MEDS ORDERED: PIPERACILLIN/TAZOBACTAM 3.375GM/50ML PREMIX IV ONE (03:15)
[2020-03-07] MEDS ORDERED: PIPERACILLIN/TAZ 3.375G PREMIX 50 ML IV NR (03:15)
[2020-03-07] MEDS ORDERED: VANCOMYCIN 1 G PREMIX 200 ML IV SCH (03:15)
[2020-03-07 08:30] VITALS: BP 130/78
[2020-03-07 09:05] VITALS: BP 129/78
[2020-03-07] MEDS ORDERED: ONDANSETRON HCL 4MG/2ML INJ IV PRN (09:15)
[2020-03-07] MEDS ORDERED: DEXTROSE 50% WATER 50ML SYRINGE IV PRN (09:15)
[2020-03-07] MEDS ORDERED: CEFTRIAXONE 1 G PREMIX 50 ML IV SCH (09:15)
[2020-03-07] MEDS ORDERED: INSULIN GLARGINE UD 100 UNITS/ML SYR SUBCUT SCH ×3 (10:00→12:00)
[2020-03-07] MEDS: TRAMADOL 50MG TABLET PO PRN ×2 (10:38→20:52)
[2020-03-07] MEDS: ENOXAPARIN 40MG/0.4ML SYR SUBCUT SCH (10:38)
[2020-03-07] MEDS: IPRATROPIUM/ALBUTEROL 0.5-3(2.5)MG/3ML NEB HHN SCH ×3 (11:48→20:37)
[2020-03-07 12:08] VITALS: BP 146/86
[2020-03-07] MEDS ORDERED: INS NPH/REG HM 70-30 100 UNITS/ML 10ML VIAL (HUMULIN 70-30) SUBCUT ONE (12:15)
[2020-03-07] MEDS ORDERED: INSULIN LISPRO 100 UNITS/ML SUBCUT NR (12:23)
[2020-03-07] MEDS: BLOOD SUGAR DIAGNOSTIC STRIP TEST SCH ×3 (12:32→20:46)
[2020-03-07] MEDS: INSULIN LISPRO 100 UNITS/ML SUBCUT SCH ×3 (12:50→20:53)
[2020-03-07] MEDS: CEFTRIAXONE 1,000 MG in DEXTROSE 5% WATER 50 ML IV SCH (12:56)
[2020-03-07 15:53] VITALS: BP 138/78
[2020-03-07 16:16] VITALS: BP 138/84
[2020-03-07] MEDS: METFORMIN HCL 500MG TABLET PO SCH (17:23)
[2020-03-07] MEDS: HYDROCODONE/ACETAMINOPHEN 5/325MG TABLET PO PRN (17:26)
[2020-03-07 20:05] VITALS: BP 134/71
[2020-03-07] MEDS: ZOLPIDEM TARTRATE 5MG TABLET PO PRN (21:37)
[2020-03-07] MEDS: INSULIN GLARGINE UD 100 UNITS/ML SYR SUBCUT SCH (21:38)
[2020-03-08] VITALS (7 sets, daily range): BP systolic 122–146; BP diastolic 75–91
[2020-03-08] MEDS: IPRATROPIUM/ALBUTEROL 0.5-3(2.5)MG/3ML NEB HHN SCH ×6 (01:05→20:09)
[2020-03-08] MEDS: HYDROCODONE/ACETAMINOPHEN 5/325MG TABLET PO PRN ×5 (01:23→21:09)
[2020-03-08 06:03] LABS: CHLORIDE 98 mEq/L (98-107)
[2020-03-08 06:10] LABS: HEMATOCRIT. 37.5 % (36.0-48.0); HEMOGLOBIN. 12.3 g/dL (12.0-16.0); MEAN CORPUSCULAR HEMOGLOBIN 28.3 pg (28.0-32.0); MEAN PLATELET VOLUME 8.6 fl (7.4-10.4); PLATELET 379 x1000/uL (130-400); RED BLOOD CELL COUNT 4.36 mill/uL (4.2-5.4); RED CELL DISTRIBUTION WIDTH 14.2 % (11.6-14.6)
[2020-03-08] MEDS: BLOOD SUGAR DIAGNOSTIC STRIP TEST SCH ×4 (07:20→21:09)
[2020-03-08] MEDS: AZITHROMYCIN 250 MG TABLET PO SCH (08:40)
[2020-03-08] MEDS: METFORMIN HCL 500MG TABLET PO SCH ×2 (08:40→19:08)
[2020-03-08] MEDS: ENOXAPARIN 40MG/0.4ML SYR SUBCUT SCH (08:41)
[2020-03-08] MEDS: INSULIN LISPRO 100 UNITS/ML SUBCUT SCH ×4 (08:48→19:10)
[2020-03-08] MEDS: INSULIN GLARGINE UD 100 UNITS/ML SYR SUBCUT SCH ×2 (10:34→21:11)
[2020-03-08] MEDS: CEFTRIAXONE 1,000 MG in DEXTROSE 5% WATER 50 ML IV SCH (10:40)
[2020-03-08] MEDS ORDERED: GUAIFENESIN-DM 200MG-20MG/10ML UDC PO SCH (13:30)
[2020-03-08] MEDS: GUAIFENESIN-DM 200MG-20MG/10ML UDC PO PRN (20:04)
[2020-03-08 20:40] LABS: PLATELET ESTIMATE NORMAL
[2020-03-08] MEDS: CEFEPIME 2,000 MG in DEXT 5% WATER 100 ML IV SCH (20:42)
[2020-03-09] VITALS: BP 139/84
[2020-03-09] MEDS: IPRATROPIUM/ALBUTEROL 0.5-3(2.5)MG/3ML NEB HHN SCH ×6 (00:26→20:59)
[2020-03-09] MEDS: INSULIN LISPRO 100 UNITS/ML SUBCUT SCH ×8 (01:13→20:34)
[2020-03-09] MEDS: GUAIFENESIN-DM 200MG-20MG/10ML UDC PO PRN ×4 (02:09→23:27)
[2020-03-09] MEDS: HYDROCODONE/ACETAMINOPHEN 5/325MG TABLET PO PRN ×4 (02:09→20:42)
[2020-03-09 04:00] VITALS: BP 152/90
[2020-03-09 07:02] LABS: PROTHROMBIN TIME 10.9 sec (9.6-11.0)
[2020-03-09] MEDS: BLOOD SUGAR DIAGNOSTIC STRIP TEST SCH ×3 (07:20→20:28)
[2020-03-09 07:43] LABS: CLARITY URINE CLEAR (CLEAR); COLOR URINE YELLOW (YELLOW); KETONES URINE NEGATIVE (NEGATIVE); LEUKOCYTE ESTERASE URINE 1+ (NEGATIVE); NITRITE URINE NEGATIVE (NEGATIVE); OCCULT BLOOD URINE NEGATIVE (NEGATIVE); PROTEIN URINE 1+ (NEGATIVE); SPECIFIC GRAVITY URINE 1.029 (1.005-1.030); UROBILINOGEN URINE 0.2 E.U./dL (0.2-1.0)
[2020-03-09 08:01] VITALS: BP 137/83
[2020-03-09] MEDS: AZITHROMYCIN 250 MG TABLET PO SCH (08:30)
[2020-03-09] MEDS: METFORMIN HCL 500MG TABLET PO SCH ×2 (08:30→18:48)
[2020-03-09] MEDS: ENOXAPARIN 40MG/0.4ML SYR SUBCUT SCH (09:00)
[2020-03-09] MEDS ORDERED: SODIUM BICARBONATE 4% (2.4MEQ) 5ML VIAL IV ONE (09:04)
[2020-03-09] MEDS: CEFEPIME 2,000 MG in DEXT 5% WATER 100 ML IV SCH ×2 (09:54→20:33)
[2020-03-09] MEDS: TRAMADOL 50MG TABLET PO PRN ×2 (10:14→18:42)
[2020-03-09] MEDS: INSULIN GLARGINE UD 100 UNITS/ML SYR SUBCUT SCH ×2 (10:15→21:03)
[2020-03-09] MEDS ORDERED: ACETAMINOPHEN 325MG TABLET PO PRN (11:15)
[2020-03-09 11:36] VITALS: BP 140/85
[2020-03-09 16:16] VITALS: BP 127/81
[2020-03-09 17:01] LABS: HEMATOCRIT. 40.6 % (36.0-48.0); HEMOGLOBIN. 12.5 g/dL (12.0-16.0); LYMPHOCYTES % 10.7 % (20.0-50.0); MEAN CORPUSCULAR HEMOGLOBIN 27.4 pg (28.0-32.0); MEAN CORPUSCULAR VOLUME 89.1 fL (81.0-99.0); MEAN PLATELET VOLUME 9.8 fl (7.4-10.4); MONOCYTES % 6.2 % (2.0-8.0); NEUTROPHILS % 81.1 % (40.0-76.0); PLATELET 325 x1000/uL (130-400); RED BLOOD CELL COUNT 4.56 mill/uL (4.2-5.4); RED CELL DISTRIBUTION WIDTH 14.8 % (11.6-14.6)
[2020-03-09 20:32] LABS: CHLORIDE 102 mEq/L (98-107)
[2020-03-09 20:33] VITALS: BP_SYST 148
[2020-03-09] MEDS: ALLOPURINOL 300 MG TABLET PO SCH (20:42)
[2020-03-09] MEDS ORDERED: ASCORBIC ACID 500 MG TABLET PO SCH (21:00)
[2020-03-09] MEDS ORDERED: CHLORHEXIDINE GLUCONATE 4% EXTERNAL USE TOP SCH (21:00)
[2020-03-09] MEDS ORDERED: BISACODYL 10MG SUPP PR PRN (21:00)
[2020-03-09] MEDS ORDERED: DIPHENHYDRAMINE 25MG CAPSULE PO PRN (21:00)
[2020-03-09] MEDS ORDERED: DOCUSATE SODIUM 100MG CAPSULE PO SCH (21:00)
[2020-03-10] VITALS (20 sets, daily range): BP systolic 127–165; BP diastolic 55–95
[2020-03-10] MEDS: IPRATROPIUM/ALBUTEROL 0.5-3(2.5)MG/3ML NEB HHN SCH ×7 (00:25→20:29)
[2020-03-10] MEDS: HYDROCODONE/ACETAMINOPHEN 5/325MG TABLET PO PRN (02:16)
[2020-03-10] MEDS: ALLOPURINOL 300 MG TABLET PO SCH (05:06)
[2020-03-10 05:59] LABS: CHLORIDE 104 mEq/L (98-107)
[2020-03-10] MEDS: BLOOD SUGAR DIAGNOSTIC STRIP TEST SCH ×4 (06:20→21:42)
[2020-03-10 06:35] LABS: HEMOGLOBIN. 11.3 g/dL (12.0-16.0); MEAN CORPUSCULAR HEMOGLOBIN 27.7 pg (28.0-32.0); MEAN CORPUSCULAR VOLUME 86.2 fL (81.0-99.0); MEAN PLATELET VOLUME 8.4 fl (7.4-10.4); PLATELET 380 x1000/uL (130-400); RED BLOOD CELL COUNT 4.06 mill/uL (4.2-5.4); RED CELL DISTRIBUTION WIDTH 14.1 % (11.6-14.6)
[2020-03-10] MEDS: INSULIN LISPRO 100 UNITS/ML SUBCUT SCH ×7 (06:56→21:54)
[2020-03-10 07:47] LABS: *AMPHETAMINES SCREEN URINE NEGATIVE (NEGATIVE); *BARBITURATES SCREEN URINE NEGATIVE (NEGATIVE); CANNABINOID URINE SCREEN NEGATIVE (NEGATIVE); METHADONE URINE SCREEN NEGATIVE (NEGATIVE); OPIATES URINE SCREEN PRESUMTIVE POSITIVE (NEGATIVE); PHENCYCLIDINE URINE SCREEN NEGATIVE (NEGATIVE)
[2020-03-10 07:48] LABS: *BENZODIAZEPINES SCREEN URINE NEGATIVE (NEGATIVE); *COCAINE SCREEN URINE PRESUMTIVE POSITIVE (NEGATIVE)
[2020-03-10] MEDS: METFORMIN HCL 500MG TABLET PO SCH ×2 (07:50→18:12)
[2020-03-10] MEDS: CEFEPIME 2,000 MG in DEXT 5% WATER 100 ML IV SCH ×2 (08:05→20:00)
[2020-03-10] MEDS: CHLORHEXIDINE GLUCONATE 4% EXTERNAL USE TOP SCH (08:27)
[2020-03-10] MEDS: ENOXAPARIN 40MG/0.4ML SYR SUBCUT SCH (08:35)
[2020-03-10] MEDS: AZITHROMYCIN 250 MG TABLET PO SCH (08:35)
[2020-03-10] MEDS ORDERED: MORPHINE SULFATE 2 MG/ML CPJ (NOT FOR IM USE) IV SCH (09:45)
[2020-03-10] MEDS: INSULIN GLARGINE UD 100 UNITS/ML SYR SUBCUT SCH ×2 (10:00→22:48)
[2020-03-10] MEDS ORDERED: FENTANYL CITRATE/PF 50MCG/ML 2ML VIAL ONE ×2 (10:14→11:31)
[2020-03-10] MEDS ORDERED: METOCLOPRAMIDE HCL 10MG/2ML VIAL ONE (10:15)
[2020-03-10] MEDS ORDERED: ONDANSETRON HCL 4MG/2ML INJ ONE (10:15)
[2020-03-10] MEDS ORDERED: NEOSTIGMINE METHYLSULFATE 1MG/ML 10 ML VIAL ONE (10:15)
[2020-03-10] MEDS ORDERED: EPHEDRINE SULFATE 50MG/ML VIAL ONE (10:15)
[2020-03-10] MEDS ORDERED: SUCCINYLCHOLINE CHLORIDE 200MG/10ML IV ONE (10:15)
[2020-03-10] MEDS ORDERED: PHENYLEPHRINE HCL 10 MG/ML 1ML (IV VIAL) IV ONE (10:15)
[2020-03-10] MEDS ORDERED: GLYCOPYRROLATE 0.2 MG/ML 2ML VIAL ONE (10:15)
[2020-03-10] MEDS ORDERED: MIDAZOLAM HCL 2 MG/2 ML VIAL ONE (10:15)
[2020-03-10] MEDS ORDERED: CEFAZOLIN SODIUM 1000MG/VIAL ONE (10:15)
[2020-03-10] MEDS ORDERED: PROPOFOL 200MG/20ML VIAL IV ONE ×2 (10:15→12:08)
[2020-03-10] MEDS ORDERED: ROCURONIUM BROMIDE 10MG/ML VIAL 5ML IV ONE ×2 (10:15→11:20)
[2020-03-10] MEDS ORDERED: BACITRACIN 50,000 UNITS/VIAL ONE ×2 (10:18→11:44)
[2020-03-10] MEDS ORDERED: BUPIVACAINE HCL/PF 0.25% (2.5MG/ML) 10ML ONE (10:18)
[2020-03-10] MEDS ORDERED: SKIN ADHESIVE 0.7 GM EA TOP ONE (10:18)
[2020-03-10] MEDS ORDERED: ETOMIDATE 2MG/ML 10ML VIAL IV ONE (10:19)
[2020-03-10] MEDS ORDERED: ALBUTEROL 90MCG/PUFF 17GM INHALER INH ONE (10:43)
[2020-03-10] MEDS ORDERED: KETOROLAC 30MG/ML VIAL ONE (12:01)
[2020-03-10 12:07] LABS: ATYPICAL LYMPHOCYTES 1
[2020-03-10 12:08] LABS: PLATELET ESTIMATE NORMAL
[2020-03-10] MEDS: KETOROLAC 15MG/ML VIAL IV SCH ×2 (13:50→18:11)
[2020-03-10] MEDS ORDERED: VANCOMYCIN 1500MG in DEXTROSE 5% WATER 250ML IV NR (16:00)
[2020-03-10] MEDS: MORPHINE SULFATE 2 MG/ML CPJ (NOT FOR IM USE) IV PRN ×2 (16:18→20:50)
[2020-03-10] MEDS: GUAIFENESIN-DM 200MG-20MG/10ML UDC PO PRN (16:41)
[2020-03-10] MEDS ORDERED: SODIUM CHLORIDE 0.9% 1,000 ML IV PRN (18:00)
[2020-03-10] MEDS ORDERED: ACETAMINOPHEN 325MG TABLET PO PRN (18:00)
[2020-03-10] MEDS: DOCUSATE SODIUM 100MG CAPSULE PO SCH (18:38)
[2020-03-10 18:57] LABS: BG BASE EXCESS 3.2 mmol/L (-2.0-2.0); BG CARBOXYHEMOGLOBIN 0.8 % (0.5-1.5); BG DEOXYHEMOGLOBIN 12.5 % (0.0-5.0); BG FRACTION INSPIRED OXYGEN 21; BG HCO3 ACT 27.2 mmol/L (22.0-26.0); BG METHEMOGLOBIN 0.2 % (0.0-1.5); BG OXYGEN SATURATION 87.4 % (92.0-98.5); BG OXYHEMOGLOBIN 86.5 % (94.0-97.0); BG PCO2 39.3 mmHg (35.0-45.0); BG PH 7.458 (7.350-7.450); BG PO2 49.6 mmHg (75.0-100.0); BG SAMPLE SITE LEFT RADIAL; BG TOTAL HEMOGLOBIN 12.8 g/dL (12.0-18.0); BG VENT MODE ROOM AIR
[2020-03-10] MEDS: ONDANSETRON HCL 4MG/2ML INJ IV PRN (20:50)
[2020-03-10] MEDS: ZOLPIDEM TARTRATE 5MG TABLET PO PRN (22:48)
[2020-03-10] MEDS: OXYCODONE HCL/ACETAMINOPHEN 5/325MG TABLET PO PRN (22:51)
[2020-03-11] VITALS (28 sets, daily range): BP systolic 96–162; BP diastolic 57–100
[2020-03-11] MEDS: IPRATROPIUM/ALBUTEROL 0.5-3(2.5)MG/3ML NEB HHN SCH ×7 (00:16→20:19)
[2020-03-11] MEDS: KETOROLAC 15MG/ML VIAL IV SCH ×4 (00:41→17:53)
[2020-03-11] MEDS: ONDANSETRON HCL 4MG/2ML INJ IV PRN (03:58)
[2020-03-11] MEDS: MORPHINE SULFATE 2 MG/ML CPJ (NOT FOR IM USE) IV PRN (03:59)
[2020-03-11] MEDS ORDERED: VANCOMYCIN 1 G PREMIX 200 ML IV SCH (04:00)
[2020-03-11 05:08] LABS: BASOPHILS % 0.5 % (0.0-2.0); EOSINOPHILS % 1.1 % (0.0-5.0); HEMATOCRIT. 32.4 % (36.0-48.0); HEMOGLOBIN. 10.6 g/dL (12.0-16.0); LYMPHOCYTES % 8.9 % (20.0-50.0); MEAN CORPUSCULAR HEMOGLOBIN 28.3 pg (28.0-32.0); MEAN CORPUSCULAR VOLUME 86.5 fL (81.0-99.0); MEAN PLATELET VOLUME 8.4 fl (7.4-10.4); NEUTROPHILS % 81.5 % (40.0-76.0); PLATELET 380 x1000/uL (130-400); RED BLOOD CELL COUNT 3.75 mill/uL (4.2-5.4); RED CELL DISTRIBUTION WIDTH 14.2 % (11.6-14.6)
[2020-03-11 05:09] LABS: CHLORIDE 103 mEq/L (98-107)
[2020-03-11] MEDS: GUAIFENESIN-DM 200MG-20MG/10ML UDC PO PRN ×4 (05:18→20:41)
[2020-03-11] MEDS ORDERED: FUROSEMIDE 40MG/4ML VIAL IVP NR (07:15)
[2020-03-11] MEDS: CHLORHEXIDINE GLUCONATE 4% EXTERNAL USE TOP SCH (08:23)
[2020-03-11] MEDS: BLOOD SUGAR DIAGNOSTIC STRIP TEST SCH ×4 (08:48→20:42)
[2020-03-11] MEDS: INSULIN LISPRO 100 UNITS/ML SUBCUT SCH ×7 (08:49→20:49)
[2020-03-11] MEDS: AZITHROMYCIN 250 MG TABLET PO SCH (08:50)
[2020-03-11] MEDS: METFORMIN HCL 500MG TABLET PO SCH ×2 (08:50→17:51)
[2020-03-11] MEDS: ENOXAPARIN 40MG/0.4ML SYR SUBCUT SCH (08:51)
[2020-03-11] MEDS: CEFEPIME 2,000 MG in DEXT 5% WATER 100 ML IV SCH ×2 (08:51→21:52)
[2020-03-11] MEDS: DOCUSATE SODIUM 100MG CAPSULE PO SCH ×2 (08:54→17:51)
[2020-03-11] MEDS ORDERED: MAGNESIUM 4 G PREMIX 100 ML IV SCH (09:00)
[2020-03-11] MEDS: INSULIN GLARGINE UD 100 UNITS/ML SYR SUBCUT SCH ×2 (10:00→22:13)
[2020-03-11] MEDS: OXYCODONE HCL/ACETAMINOPHEN 5/325MG TABLET PO PRN ×3 (13:04→20:42)
[2020-03-11] MEDS: VANCOMYCIN 1 G PREMIX 200 ML IV SCH (17:53)
[2020-03-12] VITALS (12 sets, daily range): BP systolic 92–154; BP diastolic 64–91
[2020-03-12] MEDS: KETOROLAC 15MG/ML VIAL IV SCH ×4 (00:13→17:03)
[2020-03-12] MEDS: GUAIFENESIN-DM 200MG-20MG/10ML UDC PO PRN ×4 (00:14→17:26)
[2020-03-12] MEDS: ZOLPIDEM TARTRATE 5MG TABLET PO PRN ×2 (00:14→20:23)
[2020-03-12] MEDS: BENZONATATE 100MG CAPSULE PO PRN ×2 (03:56→20:23)
[2020-03-12 04:22] LABS: HEMATOCRIT. 35.6 % (36.0-48.0); HEMOGLOBIN. 11.6 g/dL (12.0-16.0); MEAN CORPUSCULAR HEMOGLOBIN 28.1 pg (28.0-32.0); MEAN CORPUSCULAR VOLUME 86.2 fL (81.0-99.0); MEAN PLATELET VOLUME 8.6 fl (7.4-10.4); PLATELET 388 x1000/uL (130-400); RED BLOOD CELL COUNT 4.14 mill/uL (4.2-5.4); RED CELL DISTRIBUTION WIDTH 14.3 % (11.6-14.6)
[2020-03-12] MEDS: IPRATROPIUM/ALBUTEROL 0.5-3(2.5)MG/3ML NEB HHN SCH ×5 (04:25→20:43)
[2020-03-12 04:27] LABS: CHLORIDE 101 mEq/L (98-107)
[2020-03-12 04:35] LABS: VANCOMYCIN TROUGH 8.8 ug/mL (5.0-10.0)
[2020-03-12 04:40] LABS: PLATELET ESTIMATE NORMAL
[2020-03-12] MEDS: VANCOMYCIN 1 G PREMIX 200 ML IV SCH (05:52)
[2020-03-12] MEDS: BLOOD SUGAR DIAGNOSTIC STRIP TEST SCH ×4 (05:53→20:23)
[2020-03-12] MEDS: INSULIN LISPRO 100 UNITS/ML SUBCUT SCH ×7 (06:26→20:28)
[2020-03-12] MEDS ORDERED: FUROSEMIDE 40MG/4ML VIAL IVP NR (06:45)
[2020-03-12] MEDS: OXYCODONE HCL/ACETAMINOPHEN 5/325MG TABLET PO PRN ×2 (07:09→20:22)
[2020-03-12] MEDS ORDERED: MAGNESIUM 4 G PREMIX 100 ML IV NR (07:30)
[2020-03-12] MEDS: DOCUSATE SODIUM 100MG CAPSULE PO SCH ×2 (08:00→16:14)
[2020-03-12] MEDS: METFORMIN HCL 500MG TABLET PO SCH ×2 (08:00→16:14)
[2020-03-12] MEDS: CEFEPIME 2,000 MG in DEXT 5% WATER 100 ML IV SCH ×2 (08:01→21:59)
[2020-03-12] MEDS: FUROSEMIDE 40MG TABLET PO SCH (09:06)
[2020-03-12] MEDS: AZITHROMYCIN 250 MG TABLET PO SCH (10:14)
[2020-03-12] MEDS: INSULIN GLARGINE UD 100 UNITS/ML SYR SUBCUT SCH ×2 (11:25→21:53)
[2020-03-12] MEDS ORDERED: VANCOMYCIN 1 G PREMIX 200 ML IV SCH (14:00)
[2020-03-12] MEDS: VANCOMYCIN 1500MG in DEXTROSE 5% WATER 250ML IV SCH (17:03)
[2020-03-13] VITALS (12 sets, daily range): BP systolic 105–168; BP diastolic 68–93
[2020-03-13] MEDS: GUAIFENESIN-DM 200MG-20MG/10ML UDC PO PRN ×5 (00:31→20:19)
[2020-03-13] MEDS: KETOROLAC 15MG/ML VIAL IV SCH ×5 (00:32→23:41)
[2020-03-13] MEDS: IPRATROPIUM/ALBUTEROL 0.5-3(2.5)MG/3ML NEB HHN SCH ×5 (00:33→20:48)
[2020-03-13] MEDS: OXYCODONE HCL/ACETAMINOPHEN 5/325MG TABLET PO PRN ×3 (03:48→21:31)
[2020-03-13] MEDS: VANCOMYCIN 1500MG in DEXTROSE 5% WATER 250ML IV SCH ×2 (05:06→17:42)
[2020-03-13] MEDS: BLOOD SUGAR DIAGNOSTIC STRIP TEST SCH ×4 (06:01→20:39)
[2020-03-13] MEDS: INSULIN LISPRO 100 UNITS/ML SUBCUT SCH ×7 (06:11→20:43)
[2020-03-13 06:41] LABS: BASOPHILS % 0.3 % (0.0-2.0); EOSINOPHILS % 1.6 % (0.0-5.0); HEMATOCRIT. 30.5 % (36.0-48.0); HEMOGLOBIN. 9.9 g/dL (12.0-16.0); LYMPHOCYTES % 14.7 % (20.0-50.0); MEAN CORPUSCULAR HEMOGLOBIN 27.8 pg (28.0-32.0); MEAN CORPUSCULAR VOLUME 85.7 fL (81.0-99.0); MONOCYTES % 13.2 % (2.0-8.0); NEUTROPHILS % 70.2 % (40.0-76.0); PLATELET 410 x1000/uL (130-400); RED BLOOD CELL COUNT 3.55 mill/uL (4.2-5.4); RED CELL DISTRIBUTION WIDTH 14.2 % (11.6-14.6)
[2020-03-13 06:49] LABS: CHLORIDE 102 mEq/L (98-107)
[2020-03-13] MEDS ORDERED: FUROSEMIDE 40MG/4ML VIAL IVP NR (07:30)
[2020-03-13] MEDS: METFORMIN HCL 500MG TABLET PO SCH ×2 (08:10→17:39)
[2020-03-13] MEDS: DOCUSATE SODIUM 100MG CAPSULE PO SCH ×2 (08:11→17:39)
[2020-03-13] MEDS: CEFEPIME 2,000 MG in DEXT 5% WATER 100 ML IV SCH (08:11)
[2020-03-13] MEDS: FUROSEMIDE 40MG TABLET PO SCH (08:11)
[2020-03-13] MEDS ORDERED: MAGNESIUM 4 G PREMIX 100 ML IV NR (08:30)
[2020-03-13] MEDS: INSULIN GLARGINE UD 100 UNITS/ML SYR SUBCUT SCH ×2 (10:17→21:33)
[2020-03-14] VITALS (12 sets, daily range): BP systolic 122–147; BP diastolic 68–101
[2020-03-14] MEDS: IPRATROPIUM/ALBUTEROL 0.5-3(2.5)MG/3ML NEB HHN SCH ×4 (00:39→20:32)
[2020-03-14] MEDS: OXYCODONE HCL/ACETAMINOPHEN 5/325MG TABLET PO PRN ×5 (03:57→22:12)
[2020-03-14] MEDS: GUAIFENESIN-DM 200MG-20MG/10ML UDC PO PRN ×4 (04:04→23:32)
[2020-03-14] MEDS: VANCOMYCIN 1500MG in DEXTROSE 5% WATER 250ML IV SCH (05:12)
[2020-03-14 05:40] LABS: CHLORIDE 100 mEq/L (98-107)
[2020-03-14 05:57] LABS: VANCOMYCIN TROUGH 8.7 ug/mL (5.0-10.0)
[2020-03-14] MEDS: KETOROLAC 15MG/ML VIAL IV SCH ×4 (06:25→23:33)
[2020-03-14] MEDS: METFORMIN HCL 500MG TABLET PO SCH ×2 (06:25→16:32)
[2020-03-14] MEDS: BLOOD SUGAR DIAGNOSTIC STRIP TEST SCH ×4 (06:31→20:42)
[2020-03-14] MEDS: INSULIN LISPRO 100 UNITS/ML SUBCUT SCH ×7 (08:20→20:42)
[2020-03-14] MEDS: FUROSEMIDE 40MG TABLET PO SCH (08:26)
[2020-03-14] MEDS: DOCUSATE SODIUM 100MG CAPSULE PO SCH ×2 (08:26→16:34)
[2020-03-14] MEDS ORDERED: OXYC-523 MT (10:30)
[2020-03-14] MEDS ORDERED: AMOX1TAB16 PO (10:41)
[2020-03-14] MEDS ORDERED: SULF-288 PO (10:41)
[2020-03-14] MEDS: INSULIN GLARGINE UD 100 UNITS/ML SYR SUBCUT SCH ×2 (12:14→21:40)
[2020-03-14] MEDS: VANCOMYCIN 1 G PREMIX 200 ML IV SCH ×2 (14:06→21:39)
[2020-03-15] VITALS: BP 152/88
[2020-03-15] MEDS: IPRATROPIUM/ALBUTEROL 0.5-3(2.5)MG/3ML NEB HHN SCH ×3 (00:28→07:35)
[2020-03-15 02:00] VITALS: BP 157/87
[2020-03-15 04:13] VITALS: BP 164/94
[2020-03-15] MEDS: OXYCODONE HCL/ACETAMINOPHEN 5/325MG TABLET PO PRN (04:56)
[2020-03-15] MEDS: VANCOMYCIN 1 G PREMIX 200 ML IV SCH (06:05)
[2020-03-15 06:07] VITALS: BP 166/93
[2020-03-15] MEDS: KETOROLAC 15MG/ML VIAL IV SCH (06:08)
[2020-03-15] MEDS: BLOOD SUGAR DIAGNOSTIC STRIP TEST SCH (06:08)
[2020-03-15] MEDS: METFORMIN HCL 500MG TABLET PO SCH (06:31)
[2020-03-15] MEDS: INSULIN LISPRO 100 UNITS/ML SUBCUT SCH ×2 (06:50→07:20)
[2020-03-15 08:01] VITALS: BP 154/55
[2020-03-15 08:48] VITALS: BP 139/73
[2020-03-15] MEDS: DOCUSATE SODIUM 100MG CAPSULE PO SCH (09:31)
[2020-03-15] MEDS: FUROSEMIDE 40MG TABLET PO SCH (09:31)
== END 2020-03-15 10:00 | disposition home health service (06) | DRG 720 ==
LOC: ER 00:50 → 6WST 03:41 → EDBEDREQ 03:42 → EDBEDREQTM 03:42 → ENRESERV 07:42 → ER 08:54 → 6WST 09:51 → CVICU 03-10 12:25 → 3WST 03-11 14:02
PROVIDERS: ADMIT Internal Medicine; ATTEND Internal Medicine
PROC: 0W993ZZ Drainage of Right Pleural Cavity, Percutaneous Approach (ICD-10-PCS; 2020-03-09)
PROC: 0BNK0ZZ Release Right Lung, Open Approach (ICD-10-PCS; principal; 2020-03-10)
PROC: 3E1L38Z Irrigation of Pleural Cavity using Irrigating Substance, Percutaneous Approach (ICD-10-PCS; 2020-03-10)
DX: A41.9 Sepsis, unspecified organism (principal); J96.00 Acute respiratory failure, unspecified whether with hypoxia or hypercapnia; J86.9 Pyothorax without fistula; J18.9 Pneumonia, unspecified organism; E87.1 Hypo-osmolality and hyponatremia; E43 Unspecified severe protein-calorie malnutrition; E87.8 Other disorders of electrolyte and fluid balance, not elsewhere classified; G40.909 Epilepsy, unspecified, not intractable, without status epilepticus; E11.9 Type 2 diabetes mellitus without complications; I10 Essential (primary) hypertension; F17.210 Nicotine dependence, cigarettes, uncomplicated; R74.01 Elevation of levels of liver transaminase levels; J91.8 Pleural effusion in other conditions classified elsewhere; J44.9 Chronic obstructive pulmonary disease, unspecified; I11.0 Hypertensive heart disease with heart failure; I50.9 Heart failure, unspecified; K76.9 Liver disease, unspecified; F14.10 Cocaine abuse, uncomplicated; Z20.828 Contact with and (suspected) exposure to other viral communicable diseases; F12.10 Cannabis abuse, uncomplicated; Z68.28 Body mass index [BMI] 28.0-28.9, adult; Z71.51 Drug abuse counseling and surveillance of drug abuser; Z91.19 Patient's noncompliance with other medical treatment and regimen
CPT/HCPCS: 32555; 36415; 36600; 71045; 71046; 73706; 80048; 80053; 80202; 80305; 81003; 82040; 82375; 82805; 82962; 83615; 83735; 83880; 84484; 85025; 86480; 87070; 87075; 87116; 87426; 88108; 88302; 88304; 88305; 88312; 93005; 94640; 96365; 97116; 97162; 97166; 97530; 97535; 99285; J0330; J0690; J0692; J0696; J1650; J1815; J1885; J1940; J2250; J2270; J2370; J2405; J2543; J2704; J2710; J2765; J3010; J3370; J3475; J3490; J7060; Q0163

== ENCOUNTER 2020-04-10 23:00 | Emergency (ER) | payer MEDICAID ==
[~2020-04-10] VITALS: Ht 170.2 cm; Wt 82.0 kg
[~2020-04-10 23:00] MED LIST changes: +AMOX-424 MT; +BENZ100C86 MT; +HYDR-4001 MT; +INSHUMSS SUBCUT; +INSU100I28 SQ; -METF-414 PO; +METF-416 MT; +METF-416 PO
[2020-04-11] MEDS ORDERED: HYDROCODONE/ACETAMINOPHEN 5/325MG TABLET PO STA
[2020-04-11 01:15] VITALS: BP 132/87
== END 2020-04-11 01:27 | disposition home or self-care (01) ==
LOC: ER 23:00
DX: R07.89 Other chest pain (principal); I10 Essential (primary) hypertension; E11.9 Type 2 diabetes mellitus without complications; J45.909 Unspecified asthma, uncomplicated; Z98.890 Other specified postprocedural states; Z79.4 Long term (current) use of insulin
CPT/HCPCS: 71045; 93005; 99283

== ENCOUNTER 2020-04-21 00:04 | Emergency (ER) | payer MEDICAID ==
[~2020-04-21] VITALS: Ht 170.2 cm; Wt 82.0 kg
[2020-04-21] MEDS ORDERED: HYDROCODONE/ACETAMINOPHEN 5/325MG TABLET PO ONE (01:00)
[2020-04-21 01:20] LABS: BASOPHILS % 0.5 % (0.0-2.0); EOSINOPHILS % 6.6 % (0.0-5.0); HEMATOCRIT. 38.5 % (36.0-48.0); HEMOGLOBIN. 12.6 g/dL (12.0-16.0); LYMPHOCYTES % 32.8 % (20.0-50.0); MEAN CORPUSCULAR HEMOGLOBIN 28.2 pg (28.0-32.0); MEAN CORPUSCULAR VOLUME 85.8 fL (81.0-99.0); MEAN PLATELET VOLUME 8.4 fl (7.4-10.4); NEUTROPHILS % 53.1 % (40.0-76.0); PLATELET 258 x1000/uL (130-400); RED BLOOD CELL COUNT 4.49 mill/uL (4.2-5.4); RED CELL DISTRIBUTION WIDTH 15.8 % (11.6-14.6)
[2020-04-21 01:27] LABS: CHLORIDE 109 mEq/L (98-107)
[2020-04-21 05:38] VITALS: BP 143/93
== END 2020-04-21 05:46 | disposition home or self-care (01) ==
LOC: ER 00:10
DX: R09.1 Pleurisy (principal); E11.9 Type 2 diabetes mellitus without complications; I10 Essential (primary) hypertension; J45.909 Unspecified asthma, uncomplicated; Z79.4 Long term (current) use of insulin; Z98.890 Other specified postprocedural states
CPT/HCPCS: 36415; 71045; 80053; 83880; 84484; 85025; 93005; 99285